=== PATIENT | male | born 1990 | race Caucasian/White ===

== ENCOUNTER 2022-11-03 08:07 | Outpatient (REF) | payer BC, SELFPAY | END 2022-11-03 08:08 | disposition home or self-care (01) | LOC: HO.BBR 08:07 | PROVIDERS: Visit Provider Hospitalist | DX: Z13.89 Encounter for screening for other disorder (principal) ==

== ENCOUNTER 2022-11-17 09:04 | Outpatient (REF) | payer BC, SELFPAY | END 2022-11-17 09:05 | disposition home or self-care (01) | LOC: HO.BBR 09:04 | PROVIDERS: Visit Provider Hospitalist | DX: Z13.89 Encounter for screening for other disorder (principal) ==

== ENCOUNTER 2022-12-01 09:09 | Outpatient (REF) | payer BC, SELFPAY | END 2022-12-01 09:10 | disposition home or self-care (01) | LOC: HO.BBR 09:09 | PROVIDERS: Visit Provider Hospitalist | DX: Z13.89 Encounter for screening for other disorder (principal) ==

== ENCOUNTER 2022-12-15 09:09 | Outpatient (REF) | payer BC, SELFPAY | END 2022-12-15 09:10 | disposition home or self-care (01) | LOC: HO.BBR 09:09 | PROVIDERS: Visit Provider Hospitalist | DX: Z13.89 Encounter for screening for other disorder (principal) ==

== ENCOUNTER 2023-01-12 11:04 | Outpatient (REF) | payer BC, SELFPAY | END 2023-01-12 11:05 | disposition home or self-care (01) | LOC: HO.BBR 11:04 | PROVIDERS: Visit Provider Hospitalist | DX: Z13.89 Encounter for screening for other disorder (principal) ==

== ENCOUNTER 2023-01-26 08:04 | Outpatient (REF) | payer BC, SELFPAY | END 2023-01-26 08:05 | disposition home or self-care (01) | LOC: HO.BBR 08:04 | PROVIDERS: Visit Provider Hospitalist | DX: Z13.89 Encounter for screening for other disorder (principal) ==

== ENCOUNTER 2023-02-09 09:04 | Outpatient (REF) | payer BC, SELFPAY | END 2023-02-09 09:05 | disposition home or self-care (01) | LOC: HO.BBR 09:04 | PROVIDERS: Visit Provider Hospitalist | DX: Z13.89 Encounter for screening for other disorder (principal) ==

== ENCOUNTER 2023-02-23 09:17 | Outpatient (REF) | payer BC, SELFPAY | END 2023-02-23 09:18 | disposition home or self-care (01) | LOC: HO.BBR 09:17 | PROVIDERS: Visit Provider Hospitalist | DX: Z13.89 Encounter for screening for other disorder (principal) ==

== ENCOUNTER 2023-03-16 09:07 | Outpatient (REF) | payer BC, SELFPAY | END 2023-03-16 09:08 | disposition home or self-care (01) | LOC: HO.BBR 09:07 | PROVIDERS: Visit Provider Hospitalist | DX: Z13.89 Encounter for screening for other disorder (principal) ==

== ENCOUNTER 2023-03-30 09:07 | Outpatient (REF) | payer BC, SELFPAY | END 2023-03-30 09:08 | disposition home or self-care (01) | LOC: HO.BBR 09:07 | PROVIDERS: Visit Provider Hospitalist | DX: Z13.89 Encounter for screening for other disorder (principal) ==

== ENCOUNTER 2023-04-13 09:11 | Outpatient (REF) | payer BC, SELFPAY | END 2023-04-13 09:12 | disposition home or self-care (01) | LOC: HO.BBR 09:11 | PROVIDERS: Visit Provider Hospitalist | DX: Z13.89 Encounter for screening for other disorder (principal) ==

== ENCOUNTER 2023-04-27 09:03 | Outpatient (REF) | payer BC, SELFPAY | END 2023-04-27 09:04 | disposition home or self-care (01) | LOC: HO.BBR 09:03 | PROVIDERS: Visit Provider Hospitalist | DX: Z13.89 Encounter for screening for other disorder (principal) ==

== ENCOUNTER 2023-09-21 10:13 | Outpatient (REF) | payer BC, SELFPAY | END 2023-09-21 10:14 | disposition home or self-care (01) | LOC: HO.BBR 10:13 | PROVIDERS: Visit Provider Hospitalist | DX: Z13.89 Encounter for screening for other disorder (principal) ==

== ENCOUNTER 2024-02-01 08:08 | Outpatient (REF) | payer BC, SELFPAY | END 2024-02-01 08:09 | disposition home or self-care (01) | LOC: HO.BBR 08:08 | PROVIDERS: Visit Provider Hospitalist | DX: Z13.89 Encounter for screening for other disorder (principal) ==

== ENCOUNTER 2024-05-30 09:10 | Outpatient (REF) | payer BC, SELFPAY | END 2024-05-30 09:11 | disposition home or self-care (01) | LOC: HO.BBR 09:10 | PROVIDERS: Visit Provider Hospitalist | DX: Z13.89 Encounter for screening for other disorder (principal) ==

== ENCOUNTER 2024-10-03 09:00 | Outpatient (REF) | payer BC, SELFPAY | END 2024-10-03 09:01 | disposition home or self-care (01) | LOC: HO.BBR 09:00 | PROVIDERS: Visit Provider Hospitalist | DX: Z13.89 Encounter for screening for other disorder (principal) ==

== ENCOUNTER 2025-01-30 09:00 | Outpatient (REF) | payer BC, SELFPAY | END 2025-01-30 09:01 | disposition home or self-care (01) | LOC: HO.BBR 09:00 | PROVIDERS: Visit Provider Hospitalist | DX: Z13.89 Encounter for screening for other disorder (principal) ==

== ENCOUNTER 2025-07-24 09:04 | Outpatient (REF) | payer BC, SELFPAY | END 2025-07-24 09:05 | disposition home or self-care (01) | LOC: HO.BBR 09:04 | PROVIDERS: Visit Provider Hospitalist | DX: Z13.89 Encounter for screening for other disorder (principal) ==